=== PATIENT | female | born 1965 | race Hispanic/Latino ===

== ENCOUNTER 2018-02-02 10:28 | Observation (INO) | payer MEDICARE, MEDICAID ==
[2018-02-02 11:33] LABS: Troponin I Less than 0.010 ng/mL (< 0.028)
[2018-02-02] MEDS ORDERED: Ondansetron HCl/PF 4 MG/2 ML Vial IVP PRN (12:36)
[2018-02-02] MEDS ORDERED: Calcium Carbonate 500 MG ChewTAB PO PRN (12:36)
[2018-02-02] MEDS ORDERED: Dextrose 50% Abboject 50 ML SYRINGE SLOW IVP PRN ×3 (12:36→21:46)
[2018-02-02] MEDS ORDERED: Ondansetron ODT 4 MG TAB PO PRN (12:36)
[2018-02-02] MEDS ORDERED: Acetaminophen 650 MG Suppository PR PRN (12:36)
[2018-02-02] MEDS ORDERED: HumaLOG 300 UNITS/3 ML VIAL SC PRN ×2 (12:36)
[2018-02-02] MEDS ORDERED: Dextrose 5% in Water 1,000 ML IV PRN ×3 (12:36→21:46)
[2018-02-02] MEDS ORDERED: Milk Of Magnesia 30 ML UDCUP PO PRN (12:36)
[2018-02-02] MEDS ORDERED: Mag-Al 1200 mg/1200 mg/30 ML UDCUP PO PRN (12:36)
--- NOTE | 2018-02-02 12:43 | PDOC.FPRHP ---
- History of Present Illness Chief Complaint: chest pain History of Present Illness: Pt is a pleasant 52 yo HF with PMH of htn, hld, IDDM, seizure disorder who presents to the ED as a transfer from [place] for chest pain. Pt endorses that she has had sharp chest pain since last night but went into ED this morning. States that she has been progressively SOB over the last several months with exertion. She states that the pain mostly resolved after administration of the lopressor in [place]. This was given for ST rate in the 110s, now in the 80s. Still occassionally getting pangs of sharp L sided pain. No radiation. Pt states her last A1c was >14, takes 10 U of lantus q AM and SSI as well as glipizide and metformin. Also states that she felt ill a few days ago with a sore throat which has resolved. She last had a stress test 9 years ago which was normal. No hx of cath. FHx of CAD, DM II. - Allergies/Adverse Reactions Allergies Allergy/AdvReac Type Severity Reaction Status Date / Time ketorolac tromethamine Allergy Verified 08/11/13 19:50 [From Toradol] - Home Medications Medication Instructions Recorded Confirmed Type Insulin Aspart [NovoLOG Vial] 0 unit SC AC 12/14/14 05/07/16 History glipiZIDE [Glucotrol] 10 mg PO BID-AC 12/14/14 05/07/16 History metFORMIN [Glucophage] 500 mg PO BID 12/14/14 05/07/16 History Gabapentin [Neurontin] 300 mg PO TID 05/07/16 05/07/16 History Insulin Glargine,Hum.Rec.Anlog 30 unit SQ QAM 05/07/16 05/07/16 History [Lantus Solostar] Lisinopril [Zestril] 10 mg PO DAILY 05/07/16 05/07/16 History Phenytoin Sodium Extended 100 mg PO DAILY #0 cap 05/07/16 Rx [Dilantin] Sertraline HCl [Zoloft] 50 mg PO DAILY 05/07/16 05/07/16 History - History PMHx: IDDM Htn Seizure disorder diabetic neuropathy Hld PSHx: Hysterectomy C-sec x3 Cholecystectomy B/l rotator cuff repair FHx: Maternal and paternal DM II Paternal CAD-CABG Sister with lymphoma Social: Neg x3 - Review of Systems General: denies: fever/chills, fatigue ENT: reports: other (sore throat) Respiratory: reports: shortness of breath. denies: cough, congestion Cardiovascular: reports: chest pain. denies: palpitation, edema, paroxysmal nocturnal dyspnea Gastrointestinal: denies: nausea, vomiting Genitourinary: denies: dysuria Skin: denies: rashes Neurological: reports: seizure. denies: numbness Psychological: reports: anxiety - Vital signs BP: 113/70 HR 81 RR 18 O2 98 % on RA Temp: 98.4 - Physical Exam Constitutional: NAD, awake, alert and oriented, well developed HEENT: normocephalic and atraumatic, PERRLA, EOMI, conjunctiva clear, grossly normal vision, grossly normal hearing, normal nasal mucosa, MMM, oropharynx clear Neck: supple, FROM, no LAD, no JVD Chest: no-tender to palpation Heart: RRR, normal S1/S2, pulses present, no edema Lungs: CTAB, no respiratory distress, good air movement, no wheezing Abdomen: soft, non-tender, bowel sounds present Musculoskeletal: normal structure Neurological: no focal deficit Skin: no rash/lesions, good turgor, capillary refill <2 seconds Heme/Lymphatic: no unusual bruising or bleeding Psychiatric: normal mood and affect, good judgment and insight, intact recent and remote memory FMR H&P: Results - Labs Lab results: Laboratory Tests 02/02/18 02/02/18 02/02/18 08:20 08:20 08:20 WBC Hgb Hct Plt Count PT 12.7 INR 0.9 APTT 26.9 Sodium 133 L Potassium 3.4 L Chloride 95 L Glucose 600 H* POC Glucose Total Bilirubin 1.3 H Troponin I Less than 0.010 02/02/18 02/02/18 02/02/18 08:20 09:48 10:48 WBC 13.6 H Hgb 14.7 Hct 43.2 Plt Count 326 PT INR APTT Sodium Potassium Chloride Glucose POC Glucose 355 H Total Bilirubin Troponin I Less than 0.010 - EKG Interpretation EKG: SR, no ST changes FMR H&P: A/P - Problem List (1) Atypical chest pain Current Visit: Yes Status: Acute Priority: High Code(s): R07.89 - OTHER CHEST PAIN Assessment and Plan: Possibly viral in origin but high risk for CAD given risk factors of uncontrolled DM, htn, hld. Will risk stratify with lab work. Trend trops. Obs on tele. HEART score of 3. NPO at [place] and will exercise/cardiolite stress in AM. (2) Insulin dependent diabetes mellitus Current Visit: Yes Status: Acute Priority: High Code(s): E11.9 - TYPE 2 DIABETES MELLITUS WITHOUT COMPLICATIONS; Z79.4 - ALF (CURRENT) USE OF INSULIN Assessment and Plan: Will check A1c, last was very uncontrolled per pt. Will hold her home oral meds of glipizide and metformin in the event patient needs a cath. Pt takes 10 U of lantus q AM and SS I. Will order morning insulin and SSI (3) HLD (hyperlipidemia) Current Visit: Yes Status: Acute Priority: Medium Code(s): E78.5 - HYPERLIPIDEMIA, UNSPECIFIED Assessment and Plan: FLP in AM, will start statin and change to home statin if she is on one when we have her home meds, she does not know what she is on or have a list. (4) HTN (hypertension) Current Visit: No Status: Acute Code(s): I10 - ESSENTIAL (PRIMARY) HYPERTENSION Qualifiers: Hypertension type: essential hypertension Qualified Code(s): I10 - Essential (primary) hypertension Assessment and Plan: Same as above, will monitor and start something prn if needed prior to home med list (5) Hx of seizure disorder Current Visit: No Status: Acute Code(s): Z86.69 - PERSONAL HISTORY OF DIS OF THE NERVOUS SYS AND SENSE ORGANS Assessment and Plan: Pt takes something daily for her seizure disorder, pending med list will add (6) Anxiety and depression Current Visit: No Status: Acute Assessment and Plan: Hx of, home meds
[2018-02-02] MEDS ORDERED: Mag-Al 1200 mg/1200 mg/30 ML UDCUP ONE (13:08)
[2018-02-02] MEDS ORDERED: Lidocaine Viscous Sol 2% 15 ml UD Cup ONE (13:08)
[2018-02-02 13:50] LABS: Hemoglobin A1c 14.7 % (4.0-6.0)
[2018-02-02 13:51] LABS: Magnesium 1.9 mg/dL (1.6-2.6); Phosphorus 2.9 mg/dL (2.3-4.7)
--- NOTE | 2018-02-02 15:08 | HP ---
I reviewed the history and physical of Dr. Patti Hope and agree with her assessment and plan. HISTORY OF PRESENT ILLNESS: Ms. Mckeon is a 52-year-old female, who began having some sharp chest pain last night. She states; however, this morning, she was awoken by a moderately severe sha rp chest pain that felt like a "chest heaviness" like something was "sitting on my chest." This was associated with profound shortness of breath. In retrospect, Ms. Mckeon states that for at least the last 2 weeks she is becoming progressively more short of breath, particularly with exertion. She wa s initially in [place] was then transferred to our ER for further evaluation. PHYSICAL EXAMINATION: VITAL SIGNS: Her blood pressure is 120/70, her pulse rate is now 90 and regular, and respirations ar e 12. GENERAL: She is pleasant, awake and alert, in no distress. She is currently chest pain free. HEAD: Normocephalic. EAR, NOSE AND THROAT: Mucous membranes are moist. No erythema or exudate noted. NECK: Supple, without JVD. CARDIAC: Heart rhythm regular, no gallop or murmur noted. LUNGS: Clear. No rales or wheezes. No respiratory distress. ABDOMEN: Flat, soft. No guarding, rebound or rigidity. NEUROLOGIC: No focal deficits. LABORATORY DATA: Her initial troponin is less than 0.01. Her EKG shows a normal sinus rhythm. There are no ischemic changes. ASSESSMENT AND PLAN: Chest pain, given that Ms. Mckeon has a long history of poorly controlled diabe mukesh and an atypical low suspicious history, I think it is best to proceed with serial enzymes and a s tress Myoview. I have discussed the case also with the Residents.
[2018-02-02 15:13] VITALS: BMI 21.7
[2018-02-02] MEDS: Gabapentin 300 MG CAP PO SCH (20:09)
[2018-02-02] MEDS: Atorvastatin Calcium 40 MG TAB PO SCH (20:09)
[2018-02-02] MEDS: Acetaminophen 325 MG TAB PO PRN (20:12)
[2018-02-02] MEDS: Nitroglycerin 0.4 MG TAB (25 Tab Bottle) PO PRN ×3 (20:12→20:19)
[2018-02-02] MEDS ORDERED: HumaLOG 300 UNITS/3 ML VIAL SC SCH (21:45)
[2018-02-02] MEDS ORDERED: Insulin Regular 300 UNITS/3 ML VIAL SC PRN (21:46)
[2018-02-03 07:54] LABS: Anion Gap 10 mmol/L (10-20); BUN (Urea Nitrogen) 15 mg/dL (9.8-20.1); Calc. Creatinine Clearance 83 mL/min (70-130); Carbon Dioxide 27 mmol/L (22-29); Cardiac Risk 4.8 (Less than 4.5); Chloride 102 mmol/L (98-107); Cholesterol 178 mg/dl (< 200 Desired); Estimated GFR-MDRD Greater than 90; Glucose 299 mg/dL (70-105); HDL Cholesterol 37 mg/dL (>60 Neg Risk); LDL Cholesterol, Calculated 116 mg/dL; Potassium 3.4 mmol/L (3.5-5.1); Sodium 136 mmol/L (136-145); Triglycerides 125 mg/dL (Less than 150)
[2018-02-03 07:56] LABS: Amphetamine Detected (NotDetected); Barbiturates Screen Not Detected (NotDetected); Benzodiazepine Screen Not Detected (NotDetected); Cocaine Metabolite Screen Not Detected (NotDetected); Medtox Control Line Valid? VALID (VALID); Medtox Reader # READER 1; Methadone Not Detected (NotDetected); Methamphetamine Detected (NotDetected); Opiate Screen Not Detected (NotDetected); Oxycodone Screen Not Detected (NotDetected); Phencyclidine (PCP) Not Detected (NotDetected); THC/Cannabinoid Screen Not Detected (NotDetected); Tricyclic Screen Not Detected (NotDetected)
[2018-02-03 08:03] VITALS: TEMP 98.5
--- NOTE | 2018-02-03 08:41 | PDOC.FM ---
- Subjective Subjective: Pt reports that chest pain is resolved at this time. Reports having some SOB overnight. Reports having some nausea as well. Denies any acute events overnight. Denies any vomiting. Denies any vision changes. - Objective MAR Reviewed: Yes Vital Signs & Weight: Vital Signs (12 hours) Temp Pulse Resp BP BP Pulse Ox 02/03/18 08:00 98.5 F 84 16 129/97 H 98 02/03/18 07:30 98.5 F 84 16 02/03/18 04:00 97.7 F 79 16 125/77 02/02/18 23:56 97.8 F 84 16 100/59 L 96 Weight Weight 50.122 kg I&O: 02/02/18 02/03/18 02/04/18 06:59 06:59 06:59 Intake Total 480 Output Total 500 Balance -20 Result Diagrams: 02/03/18 04:12 EKG Reviewed by me: Yes Radiology Reviewed by me: Yes <Ricky Vicente - Last Filed: 02/03/18 08:36> - Objective Vital Signs & Weight: Vital Signs (12 hours) Temp Pulse Resp BP Pulse Ox 02/03/18 12:00 98.5 F 100 18 112/75 94 L 02/03/18 10:23 84 02/03/18 08:00 98.5 F 84 16 129/97 H 98 02/03/18 07:30 98.5 F 84 16 Weight Weight 50.122 kg I&O: 02/02/18 02/03/18 02/04/18 06:59 06:59 06:59 Intake Total 480 Output Total 500 Balance -20 Result Diagrams: 02/03/18 04:12 <Gena Jurado - Last Filed: 02/03/18 19:00> Phys Exam - Physical Examination Constitutional: NAD HEENT: PERRLA, moist MMs, sclera anicteric, oral pharynx no lesions, 2+ tonsils Neck: no nodes, no JVD, supple, full ROM Respiratory: no wheezing, no rales, no rhonchi, clear to auscultation bilateral Cardiovascular: RRR, no significant murmur, no rub Gastrointestinal: soft, non-tender, no distention, positive bowel sounds Musculoskeletal: no edema, pulses present Neurological: non-focal, normal sensation, moves all 4 limbs Lymphatic: no nodes Psychiatric: normal affect, A&O x 3 Skin: no rash, normal turgor, cap refill <2 seconds <Ricky Vicente - Last Filed: 02/03/18 08:36> Dx/Plan (1) Atypical chest pain Code(s): R07.89 - OTHER CHEST PAIN Status: Acute (2) HLD (hyperlipidemia) Code(s): E78.5 - HYPERLIPIDEMIA, UNSPECIFIED Status: Acute (3) Insulin dependent diabetes mellitus Code(s): E11.9 - TYPE 2 DIABETES MELLITUS WITHOUT COMPLICATIONS; Z79.4 - ASSISTED (CURRENT) USE OF INSULIN Status: Acute (4) Anxiety and depression Status: Acute (5) HTN (hypertension) Code(s): I10 - ESSENTIAL (PRIMARY) HYPERTENSION Status: Acute QualifierTitle: Hypertension type: essential hypertension Qualified Code( s): I10 - Essential (primary) hypertension (6) Hx of seizure disorder Code(s): Z86.69 - PERSONAL HISTORY OF DIS OF THE NERVOUS SYS AND SENSE ORGANS Status: Acute (7) Polysubstance abuse Code(s): F19.10 - OTHER PSYCHOACTIVE SUBSTANCE ABUSE, UNCOMPLICATED Status: Acute - Plan Plan: (1) Atypical chest pain high risk for CAD given risk factors of uncontrolled DM, htn, hld. -Likely related to drug use -Heart score 3. NPO now and plane for excercise stress test. (2) Insulin dependent diabetes mellitus -Hgb a1c 14.7. Blood sugars elevated overnight Will hold her home oral meds of glipizide and metformin in the event patient needs a cath. Pt takes 10 U of lantus q AM and SSI. Increased dose to 17u do to high blood sugars and calculated need -Moderate SSI. Accuchecks Achs. (3) HLD (hyperlipidemia) FLP in AM, will start statin and change to home statin if she is on one when we have her home meds, she does not know what she is on or have a list. (4) HTN (hypertension) Same as above, will monitor and start something prn if needed prior to home med list (5) Hx of seizure disorder Pt takes something daily for her seizure disorder, pending med list will add (6) Anxiety and depression Hx of, home meds (7)Polysubstance Abuse -UDS positive for meth and amphetatmines. Likely cause of tachycardia and possibly cause of chest pain -counseled on cessation <Ricky Vicente - Last Filed: 02/03/18 08:36> Attending Addendum - Attending Addendum Date/Time: 02/03/18 [id number] I personally evaluated the patient and discussed the management with Dr. Vicente. I agree with the History, Examination, Assessment and Plan documented above with any addition or exceptions noted below. Pt will have stress test today. She was counseled on drug cessation. Will adjust insulin regimen for uncontrolled diabetes. <Gena Jurado - Last Filed: 02/03/18 19:00>
[2018-02-03] MEDS ORDERED: Insulin Detemir 100 UNITS/ML 10 UNITS SC SCH ×2 (09:00)
[2018-02-03] MEDS ORDERED: Enoxaparin Sodium 40 MG/0.4 ML SYRINGE SC SCH (09:00)
[2018-02-03] MEDS ORDERED: Lisinopril 10 MG TAB PO SCH (09:00)
[2018-02-03] MEDS ORDERED: Lisinopril 2.5 MG TAB PO SCH (09:00)
[2018-02-03] MEDS ORDERED: Insulin Detemir 100 UNITS/ML 17 UNITS in Pre-Filled Syringe 1 EACH SC SCH (09:00)
[2018-02-03] MEDS ORDERED: Insulin Detemir 100 UNITS/ML 15 UNITS in Admixture Fee 1 EACH SC SCH (09:00)
[2018-02-03] MEDS ORDERED: Regadenoson 0.4 MG/5 ML SYRINGE ONE (09:42)
[2018-02-03] MEDS: Gabapentin 300 MG CAP PO SCH (10:23)
--- NOTE | 2018-02-03 11:48 | NM ---
CARDIAC SPECT: CLINICAL HISTORY: 52-year-old female with chest pain, asthma, and diabetes mellitus. TECHNIQUE: A myocardial perfusion scan was performed using the single isotope one day protocol with technetium-9 9m sestamibi. 9 mCi were injected intravenously for the rest exam followed by 33 mCi for the stress e xam. Pharmacologic stress with Lexiscan was monitored and interpreted by Jdui Vitale. FINDINGS: Homogeneous tracer distribution is seen in the myocardial segments on stress and rest images without fixed or reversible defects. GATED SPECT LVEF: 79%. WALL MOTION EXAM: Normal. IMPRESSION: Normal myocardial perfusion scan. POS: SIOBHAN
[2018-02-03 12:06] VITALS: BP 112/75
[2018-02-03] MEDS: Acetaminophen 325 MG TAB PO PRN (12:22)
--- NOTE | 2018-02-03 13:37 | DIS-2 ---
DATE OF ADMISSION: 02/02/2018 DATE OF DISCHARGE: 02/03/2018 DISCHARGE ATTENDING: Dr. Gena Jurado RESIDENT: Dr. Ricky Vicente, PGY1. PRIMARY DIAGNOSES: 1. Atypical chest pain, likely secondary to drug use. 2. Insulin-dependent diabetes mellitus, uncontrolled. 3. Hyperlipidemia. 4. Hypertension. 5. History of seizure disorder. 6. Anxiety and depression. 7. Polysubstance abuse. DISCHARGE MEDICATIONS: 1. Include aspirin 81 mg p.o. daily. 2. Atorvastatin 40 mg p.o. daily. 3. Gabapentin 400 mg p.o. t.i.d. 4. Glipizide 10 mg p.o. daily. 5. Insulin 15 units subcu q.a.m. 6. Lisinopril 2.5 mg daily. 7. Metformin 1000 mg p.o. b.i.d. No medications were discontinued at this time. Insulin was increased. HISTORY OF PRESENT ILLNESS AND BRIEF HOSPITAL COURSE: This is a 52-year-old female that came in with sharp chest pain that started the night before admission. She had progressively gotten short of ciarra ath with exertion. When she came in, she was having some tachycardia in the 110s, but resolved short ly once getting to the ER. When we got here, we checked hemoglobin A1c, it was 14.7. We trended her troponins x3, they were negative and continued to monitor her on tele overnight with no acute events . Her heart score was 3, we sent her for a nuclear stress test which was normal. Also her blood sug ar was elevated up in the 600s and 500s we gave her some regular insulin overnight. We would increas e her insulin dose to 17 units of Levemir in the morning. Likely the patient had not been taking any of her medicines outside of previous admission, so we continued her home meds. After stress test wa s normal no other findings. Also, her cholesterol was 178. Her LDL was 116 and HDL at 37. Due to h eart score, uncontrolled diabetes and risk for heart attack we decided to start her on a statin. We started her on atorvastatin 40 mg. At this time with normal stress test she was good for discharge. DISPOSITION: Stable. DISCHARGE LOCATION: Home. ACTIVITY: As tolerated. DIET: Heart healthy diet. FOLLOWUP: She will need to follow up with her primary care doctor in 14 days.
== END 2018-02-03 13:38 | disposition home or self-care (01) ==
LOC: ERS 10:28 → 2SE 13:05
PROVIDERS: ADMIT Family Medicine; ATTEND Family Medicine
DX: R07.89 Other chest pain (principal); E11.65 Type 2 diabetes mellitus with hyperglycemia; E78.5 Hyperlipidemia, unspecified; I10 Essential (primary) hypertension; F41.8 Other specified anxiety disorders; G40.909 Epilepsy, unspecified, not intractable, without status epilepticus; F19.10 Other psychoactive substance abuse, uncomplicated; E11.40 Type 2 diabetes mellitus with diabetic neuropathy, unspecified; Z79.4 Long term (current) use of insulin; Z79.899 Other long term (current) drug therapy
CPT/HCPCS: 78452; 80048; 80061; 80306; 82962 ×2; 83036; 83735; 84100; 84443; 84484; 93005; 93017; 96372; 99285; A9500; G0378; 36415; 36416; A4216; J1650; J1815; J2785